=== PATIENT | female | born 1970 | race Caucasian/White ===

== ENCOUNTER → 2023-08-10 | Outpatient (CLI) | payer MEDICARE, MEDICAID ==
[~2023-08-10] MED LIST: ASPIR LOW81 MG PO; DEPO-PROVER150 MG/M2 IM; FOLIC ACID1 MG PO; METFORMIN500 MG PO; SYNTHROID0.088 MG PO; VITAMIN B11000 MCG/M IM; VITAMIN C PO
[2023-08-10 11:47] LABS: BASO # 0.04 K/mm3 (0.02-0.10); EOS % 1.5 % (1.0-5.0); HEMATOCRIT 42.8 % (37.0-47.0); HEMOGLOBIN 14.2 g/dL (12.5-16.0); LYMPH# 1.47 K/mm3 (1.50-4.00); MEAN CELL VOLUME 96 fl (78-100); MEAN CORPUSCULAR HEMOGLOBIN 32 pg (27-31); MEAN CORPUSCULAR HGB CONC 33 g/dL (33-37); MEAN PLATELET VOLUME 8.6 fl (7.4-10.4); MONO # 0.58 K/mm3 (0.20-0.80); NEU # 4.47 K/mm3 (1.40-6.50); PLATELET COUNT 325 K/mm3 (130-400); RED BLOOD COUNT 4.44 M/mm3 (4.10-5.30); RED CELL DISTRIBUTION WIDTH 12.2 % (11.5-14.5); WHITE BLOOD COUNT 6.7 K/mm3 (4.8-10.8)
[2023-08-10 11:51] LABS: CALCIUM 9.6 mg/dL (8.3-10.5)
[2023-08-10 11:53] LABS: TOTAL PROTEIN 7.6 g/dL (6.4-8.3)
[2023-08-10 11:54] LABS: TOTAL BILIRUBIN 0.4 mg/dL (0.2-1.2)
[2023-08-10 23:34] LABS: CREATININE OTHER SOURCE 29 mg/dL (63-166)
== END ==
LOC: LAB 11:23
PROVIDERS: Internal Medicine
DX: E03.8 Other specified hypothyroidism (principal); E11.9 Type 2 diabetes mellitus without complications; E78.2 Mixed hyperlipidemia; K90.9 Intestinal malabsorption, unspecified

== ENCOUNTER → 2024-05-02 | Outpatient (CLI) | payer MEDICARE, MEDICAID ==
[2024-05-02 13:03] LABS: EOS # 0.02 K/mm3 (0.04-0.40); EOS % 0.2 % (1.0-5.0); HEMATOCRIT 42.6 % (37.0-47.0); HEMOGLOBIN 14.6 g/dL (12.5-16.0); LYMPH# 1.78 K/mm3 (1.50-4.00); MEAN CELL VOLUME 94 fl (78-100); MEAN CORPUSCULAR HEMOGLOBIN 32 pg (27-31); MEAN CORPUSCULAR HGB CONC 34 g/dL (33-37); MEAN PLATELET VOLUME 9.1 fl (7.4-10.4); MONO # 0.75 K/mm3 (0.20-0.80); NEU # 7.19 K/mm3 (1.40-6.50); PLATELET COUNT 273 K/mm3 (130-400); RED BLOOD COUNT 4.55 M/mm3 (4.10-5.30); RED CELL DISTRIBUTION WIDTH 12.6 % (11.5-14.5); WHITE BLOOD COUNT 9.8 K/mm3 (4.8-10.8)
[2024-05-02 13:10] LABS: ALBUMIN 4.1 g/dL (3.5-5.0)
[2024-05-02 13:11] LABS: CALCIUM 9.9 mg/dL (8.3-10.5)
[2024-05-02 13:12] LABS: TOTAL PROTEIN 7.4 g/dL (6.4-8.3)
[2024-05-02 13:14] LABS: TOTAL BILIRUBIN 0.7 mg/dL (0.2-1.2)
[2024-05-02 13:37] LABS: PH-URINE 5.5 (5.0 - 8.0); URINE APPEARANCE SLIGHTLY CLOUDY (CLEAR); URINE BILIRUBIN 3+ (NEGATIVE); URINE COLOR AMBER (YELLOW); URINE GLUCOSE NEGATIVE (NEGATIVE); URINE KETONE 3+ (NEGATIVE); URINE PROTEIN(semi-quant) 2+ (NEGATIVE)
[2024-05-02 13:38] LABS: URINE BLOOD NEGATIVE (NEGATIVE); URINE LEUKOCYTE ESTERASE NEGATIVE (NEGATIVE); URINE MUCUS PRESENT (NOT PRESENT); URINE NITRATE NEGATIVE (NEGATIVE); URINE WBC 0-1 /hpf (0-3)
== END ==
LOC: LAB 12:25
PROVIDERS: Nurse Practitioner Family
DX: K59.00 Constipation, unspecified (principal); R42 Dizziness and giddiness

== ENCOUNTER → 2024-05-21 | Outpatient (CLI) | payer MEDICARE ==
[2024-05-21 10:54] LABS: BASO # 0.05 K/mm3 (0.02-0.10); EOS # 0.17 K/mm3 (0.04-0.40); EOS % 1.5 % (1.0-5.0); HEMATOCRIT 36.6 % (37.0-47.0); HEMOGLOBIN 11.8 g/dL (12.5-16.0); LYMPH# 1.48 K/mm3 (1.50-4.00); MEAN CELL VOLUME 99 fl (78-100); MEAN CORPUSCULAR HEMOGLOBIN 32 pg (27-31); MEAN CORPUSCULAR HGB CONC 32 g/dL (33-37); MEAN PLATELET VOLUME 9.1 fl (7.4-10.4); MONO # 0.71 K/mm3 (0.20-0.80); NEU # 8.64 K/mm3 (1.40-6.50); PLATELET COUNT 513 K/mm3 (130-400); RED CELL DISTRIBUTION WIDTH 13.7 % (11.5-14.5); WHITE BLOOD COUNT 11.1 K/mm3 (4.8-10.8)
[2024-05-21 10:58] LABS: ALBUMIN 3.3 g/dL (3.5-5.0)
[2024-05-21 10:59] LABS: CALCIUM 9.4 mg/dL (8.3-10.5)
[2024-05-21 11:02] LABS: TOTAL BILIRUBIN 0.3 mg/dL (0.2-1.2)
[2024-05-21 11:07] LABS: MAGNESIUM 2.12 mg/dL (1.60-2.60)
== END ==
LOC: LAB 10:23
PROVIDERS: Internal Medicine
DX: K90.9 Intestinal malabsorption, unspecified (principal); E03.8 Other specified hypothyroidism; E11.9 Type 2 diabetes mellitus without complications

== ENCOUNTER → 2024-06-20 | Outpatient (CLI) | payer MEDICARE | LOC: LAB 10:06 | DX: E03.8 Other specified hypothyroidism (principal) ==